=== PATIENT | female | born 1980 | race Caucasian/White ===

== ENCOUNTER → 2016-08-14 | Outpatient (CLI) | payer OTHER | END | disposition home or self-care (01) | LOC: YCFC.O 11:53 | PROVIDERS: ATTEND Nurse Practitioner Family | DX: G40.301 Generalized idiopathic epilepsy and epileptic syndromes, not intractable, with status epilepticus (principal); R53.83 Other fatigue ==

== ENCOUNTER → 2017-04-20 | Outpatient (CLI) | payer OTHER ==
--- NOTE | 2017-04-21 08:50 | RAD ---
EXAM DESCRIPTION: KUB CLINICAL HISTORY: 36 years Female, OTHER CONSTIPATION COMPARISON: None. FINDINGS: There is a large amount of stool and gas scattered the colon. No dilated small bowel loops. No suspicious intra-abdominal calcification or mass. There is severe levoscoliosis of the lower thoracic and lumbar spine. IMPRESSION: Large amount of colonic stool and gas, but no small bowel obstruction. Advanced levoscoliosis. Electronically signed by: Deric Aj MD 04/21/2017 8:49 AM [facility]
== END | disposition home or self-care (01) ==
LOC: YCFC.O 11:34
PROVIDERS: ATTEND Nurse Practitioner Family
DX: K59.09 Other constipation (principal)

== ENCOUNTER → 2017-11-12 | Outpatient (CLI) | payer OTHER | LOC: YCFC.O 13:25 | PROVIDERS: ATTEND Nurse Practitioner Family | DX: G40.301 Generalized idiopathic epilepsy and epileptic syndromes, not intractable, with status epilepticus (principal) ==

== ENCOUNTER → 2018-05-20 | Outpatient (CLI) | payer OTHER | LOC: LAB.O 10:40 | PROVIDERS: ATTEND Nurse Practitioner Family | DX: G40.301 Generalized idiopathic epilepsy and epileptic syndromes, not intractable, with status epilepticus (principal); R53.83 Other fatigue ==

== ENCOUNTER → 2018-09-02 | Outpatient (CLI) | payer OTHER | LOC: LAB.O 14:40 | PROVIDERS: ATTEND Nurse Practitioner Family | DX: G40.301 Generalized idiopathic epilepsy and epileptic syndromes, not intractable, with status epilepticus (principal); R53.83 Other fatigue ==

== ENCOUNTER → 2018-09-09 | Outpatient (CLI) | payer OTHER | LOC: YCFC.O 10:20 | PROVIDERS: ATTEND Nurse Practitioner Family | DX: G40.301 Generalized idiopathic epilepsy and epileptic syndromes, not intractable, with status epilepticus (principal) ==

== ENCOUNTER → 2019-11-01 | Outpatient (CLI) | payer OTHER | LOC: YCFC.O 13:35 | PROVIDERS: ATTEND Nurse Practitioner | DX: R56.9 Unspecified convulsions (principal) ==